=== PATIENT | male | born 1955 | race Two or more races ===

== ENCOUNTER 2020-12-28 19:28 | Emergency (ER) | payer SELFPAY ==
[~2020-12-28] VITALS: Ht 175.3 cm; Wt 75.2 kg
[2020-12-28 20:33] LABS: BASOPHILS % 0.8 % (0.0-2.0); EOSINOPHILS % 3.2 % (0.0-5.0); HEMATOCRIT. 40.4 % (42.0-52.0); HEMOGLOBIN. 13.8 g/dL (14.0-18.0); MEAN CORPUSCULAR HEMOGLOBIN 28.6 pg (28.0-32.0); MEAN CORPUSCULAR VOLUME 83.6 fL (80.0-94.0); MEAN PLATELET VOLUME 8.1 fl (7.4-10.4); MONOCYTES % 8.3 % (2.0-8.0); NEUTROPHILS % 51.7 % (40.0-76.0); PLATELET 214 x1000/uL (130-400); RED BLOOD CELL COUNT 4.83 mill/uL (4.7-6.1); RED CELL DISTRIBUTION WIDTH 14.2 % (11.6-14.6)
[2020-12-28 20:39] LABS: CHLORIDE 105 mEq/L (98-107)
[2020-12-28 20:42] LABS: PARTIAL THROMBOPLASTIN TIME 25.9 sec (23.4-31.0); PROTHROMBIN TIME 10.9 sec (9.6-11.0)
[2020-12-28 20:44] LABS: ETHANOL BLOOD < 10 mg/dL
[2020-12-28 20:46] LABS: LDL CHOLESTEROL 119 mg/dL (5-100)
[2020-12-28 21:01] LABS: CLARITY URINE CLEAR (CLEAR); COLOR URINE YELLOW (YELLOW); KETONES URINE NEGATIVE (NEGATIVE); LEUKOCYTE ESTERASE URINE NEGATIVE (NEGATIVE); NITRITE URINE NEGATIVE (NEGATIVE); OCCULT BLOOD URINE TRACE (NEGATIVE); PROTEIN URINE NEGATIVE (NEGATIVE); SPECIFIC GRAVITY URINE 1.047 (1.005-1.030); UROBILINOGEN URINE 0.2 E.U./dL (0.2-1.0)
[2020-12-28] MEDS ORDERED: ASPIRIN 325MG EC TABLET PO ONE (21:15)
[2020-12-28 21:18] LABS: *AMPHETAMINES SCREEN URINE NEGATIVE (NEGATIVE); *BARBITURATES SCREEN URINE NEGATIVE (NEGATIVE); *BENZODIAZEPINES SCREEN URINE NEGATIVE (NEGATIVE); *COCAINE SCREEN URINE NEGATIVE (NEGATIVE); METHADONE URINE SCREEN NEGATIVE (NEGATIVE); OPIATES URINE SCREEN NEGATIVE (NEGATIVE)
[2020-12-28 21:19] LABS: CANNABINOID URINE SCREEN PRESUMTIVE POSITIVE (NEGATIVE); PHENCYCLIDINE URINE SCREEN NEGATIVE (NEGATIVE)
[2020-12-28] MEDS ORDERED: IOHEXOL-350 100 ML BOTTLE ONE (22:13)
[2020-12-28 22:39] VITALS: BP 154/65
== END 2020-12-28 23:00 | disposition short-term general hospital (02) ==
LOC: ER 19:28
DX: I63.9 Cerebral infarction, unspecified (principal); R29.706 NIHSS score 6; I77.71 Dissection of carotid artery
CPT/HCPCS: 36415; 70450; 70496; 70498; 71045; 80053; 80305; 80320; 81003; 82962; 83721; 84484; 85025; 85610; 85730; 93005; 99285; Q9967; G0480